=== PATIENT | female | born 2005 | race Caucasian/White ===

== ENCOUNTER 2024-08-02 11:56 | Observation (INO) | payer MEDICAID, OTHER ==
--- NOTE | 2024-08-02 12:54 | DVH ---
LIMITED OB ULTRASOUND > 14 WKS: HISTORY: S/P fall TECHNIQUE: Multiple real-time grayscale images of the gravid uterus with duplex Doppler color flow an d M-mode spectral analysis. TRANSDUCER: Transabdominal COMPARISON: None FINDINGS/IMPRESSION: Single intrauterine . heart rate 161 beats per minute DONNIE 9.3 cm Cervix is not visualized Cephalic Presentation Posterior Placenta without previa or abruption.
[2024-08-02] MEDS ORDERED: FERR28TA4 PO (12:55)
[2024-08-02] MEDS ORDERED: PREN-96 PO (12:55)
--- NOTE | 2024-08-02 19:45 | DVHDS2 ---
Physician Discharge Progress N Final Diagnosis: s/p fall Operations or Procedures: Operations or Procedures nst 35wks,sono Condition on Discharge: Good Disposition: Home Discharge Instructions: Diet: Regular Activity: No Restrictions, As Tolerated Follow Up/Referral: f/u with provider Medications: na Follow Up Care: Specialist: 2d Discharge Statement: "Patient was advised to return to the ER or call 911 if any headaches, dizziness, shortness of breath, chest pain, abdominal pain, bleeding, fevers, or worsening of medical condition. Patient was counseled about treatment plan, medications, possible side effects, patientverbalized understanding. All questions were answered to the best of my ability. This discharge took greater then 30 minutes in planning, reviewing documentation, counseling the patient, and discussing with other team members." Visit Coding OBGYN Date of Service: Aug 02, 2024 Billing Provider: ELIDA ALMANZA DO [employer] Common Visit Codes: 18906-AMN/OBS DISCH DAY >30MIN [employer] Procedure Codes: 57832-68- NON-STRESS TEST ELIDA ALMANZA DO Aug 02, 2024 19:45
== END 2024-08-02 13:43 | disposition home or self-care (01) ==
LOC: LDRP 11:56
PROVIDERS: ADMIT Obstetrics & Gynecology; ATTEND Obstetrics & Gynecology
DX: O26.893 Other specified pregnancy related conditions, third trimester (principal); R10.9 Unspecified abdominal pain; Z98.890 Other specified postprocedural states; Z79.899 Other long term (current) drug therapy; Z3A.35 35 weeks gestation of pregnancy
CPT/HCPCS: 76815; 81002; G0378